=== PATIENT | male | born 1960 | race Caucasian/White ===

== ENCOUNTER → 2017-03-29 | Outpatient (CLI) | payer OTHER ==
[~2017-03-29] MED LIST: ASPEC81 PO; CYAN10005 PO; LPR25 PO; SIMV10TA2 PO; SYN100 PO
[2017-03-29 10:02] LABS: ESTIMATED AVERAGE GLUCOSE 117 mg/dl; HA1C FLAG Normal (Normal)
[2017-03-29 10:07] LABS: BLOOD UREA NITROGEN 14 mg/dl (7-18); CREATININE 0.79 mg/dl (0.60-1.40); GLUCOSE 107 mg/dl (70-99)
[2017-03-29 10:08] LABS: ALT/SGPT 55 U/L (12-78); BUN/CREATININE RATIO 18.3 (10-20); CALCIUM 9.1 mg/dl (8.5-10.1); CARBON DIOXIDE 30 mmol/L (21-32); CHLORIDE 100 mmol/L (98-107); CHOLESTEROL 154 mg/dl (0-200); POTASSIUM 3.9 mmol/L (3.5-5.1); SODIUM 138 mmol/L (136-145); TRIGLYCERIDES 124 mg/dl (0-150); VERY LOW DENSITY LIPOPROT CALC 25 mg/dl
[2017-03-29 10:18] LABS: CHOLESTEROL/HDL RATIO 2.8; HDL CHOLESTEROL 56 mg/dl; LDL CHOLESTEROL CALCULATED 73 mg/dl
== END | disposition home or self-care (01) ==
LOC: C.LAB1850 08:55
PROVIDERS: ATTEND Family Medicine
DX: E03.9 Hypothyroidism, unspecified (principal); E78.5 Hyperlipidemia, unspecified; Z11.59 Encounter for screening for other viral diseases